=== PATIENT | female | born 1975 | race Caucasian/White ===

== ENCOUNTER 2019-05-17 06:20 | Outpatient (RCR) | payer OTHER, SELFPAY | END 2019-05-30 00:01 | LOC: ONCRAD 06:20 | PROVIDERS: Family Provider Family Medicine; Visit Provider Radiology Radiation Oncology | DX: Z53.9 Procedure and treatment not carried out, unspecified reason (principal) ==

== ENCOUNTER 2019-06-16 06:29 | Outpatient (RCR) | payer OTHER, SELFPAY ==
--- NOTE | 2019-06-16 13:05 | ONC FU_ITS ---
Dr. Wen follow up note Patient: Sara Barry Unit #: [id number]: [id number] Dicatated By: Tasneem Wen M.D.Date of Visit:Jun 16, 2019 Onc Med Follow-up/Prog Note History of Present Illness: Mrs. Sara Barry, is a 44-year-old female with history of abnormal screening mammogram done on 12/09/2018, underwent lumpectomy on 01/20/2019 for BI-RADS 4 lesion in the right breast at 12:00 position and final pathology report showed DCIS 2 mm in size, Comedo pattern, necrosis present, margins were clear except DCIS 1 mm from inked posterior margin pTis, ER 42% week to moderate positive, VA 92% strong positive HER-2/lyndsey negative Patient tolerated procedure well now due to close margin, scheduled for reexcision on 02/17/2019.Status post postlumpectomy radiation therapy completed on 04/19/2019 Patient was offered tamoxifen as adjuvant therapy but patient declined against medical advise she was referred to breast cancer clinic at [place] for clinical trial and second opinion she was seen by Dr. Ledbetter on 05/11/2019 and recommendations were consider tamoxifen as patient is premenopausal unless patient undergo bilateral oophorectomy and then aromatase inhibitor can be considered. Also recommended cytogenetic testing. But patient has decided not to consider tamoxifen because of related side effects and toxicity and her personal reasons. Family history positive for breast cancer in her great grandmother. Patient had 3 pregnancies, 3 live births, did not breast-feed. Used oral contraceptive for short period time Came for follow-up, denies any specific complaints, no fever or chills, no nausea or vomiting, no diarrhea constipation, no abdominal pain,. Patient has seen Dr. Ledbetter at [facility] and was pleased with second opinion and evaluation but still adamant not to consider tamoxifen or any hormonal therapy. Medications: Levo-T 1 Tablet (of 100 mcg) Oral daily Allergies: No Known Allergies. Review of Systems: Constitutional - Appetite is good and weight is stable. No fever, chills, hot flashes, or night sweats. Energy is good, ENMT - No sinus congestion/drainage. No mouth sores. No sore throat or difficulty swallowing, Hematologic/Lymphatic - No abnormal bruising or bleeding, Respiratory - No shortness of breath. No cough. No pleuritic pain or hemoptysis, Cardiovascular - No angina pain, Gastrointestinal - No nausea or vomiting. No heartburn or acid reflux. No diarrhea or constipation. No blood in the stool or black stools, Genitourinary (F) - No dysuria or hematuria. No urinary frequency. No urgency or incontinence, Musculoskeletal - Positive for back pain, Neurologic - No headache. Positive for occasional dizziness. No numbness/paresthesias or other focal neurologic symptoms, Psychiatric - Positive for depression and anxiety. Vital Signs: Performed on Jun 16, 2019 08:21 Height - 66.00 in Weight - 231.8 lbs (HIGH) BSA - 2.13 sq.m BMI - 37.41 (HIGH) Temperature - 98.0 F (LOW) Pulse - 82 /min Respiration - 18 /min BP - 129/84 mm(hg) O2 Sat - 98 % Pain - 0 Performance Status: 0 - Fully active, able to carry on all predisease activities without restrictions. (ECOG) Physical Examination: Respiratory - Lungs are clear to auscultation without rhonchi or wheezing, Cardiovascular - Regular rate and rhythm of heart, Extremities - no edema. Lab/Imaging: Most recent lab results are not available for this patient. Impression: Subcentimeter DCIS involving the right breast status post lumpectomy done on 01/20/2019, Final pathology report 2 mm DCIS, comedo pattern, necrosis present, clear margin but DCIS 1 mm from inked posterior margin, no lymph nodes submitted pTis,Nx,Mx ER 42%, VA 92%, HER-2/lyndsey negative Status post postlumpectomy radiation therapy completed on 04/19/2019 Patient was recommended for adjuvant hormonal therapy with tamoxifen for 5 years but patient declined, she was referred to breast cancer clinic at [facility] where she was seen by Dr. Ledbetter on 05/11/2019 and again they concurred with our recommendations patient was offered tamoxifen but patient declined against medical advise, knowing the risk versus benefits Plan: Discussed with patient regarding her disease status and role of adjuvant hormone therapy but patient would not consider adjuvant hormonal therapy despite of having lengthy discussion with at breast cancer clinic in [facility]. Patient has decided not to take tamoxifen AGAINST MEDICAL ADVICE rather prefer observation alone. She has completed postlumpectomy radiation therapy although. In that case we will see her on as-needed basis as patient will follow with her NET [employer]ER and primary care physician with follow-up mammogram. Unless she changes her mind regarding adjuvant therapy. Signed By: Tasneem Wen M.D. <<Signature on File>>
== END 2019-06-30 23:59 | disposition home or self-care (01) ==
LOC: ONCMED 06:29
PROVIDERS: Family Provider Family Medicine; PCP Family Medicine; Visit Provider Internal Medicine Hematology & Oncology
DX: D05.11 Intraductal carcinoma in situ of right breast (principal); Z17.0 Estrogen receptor positive status [ER+]; Z92.3 Personal history of irradiation; Z80.3 Family history of malignant neoplasm of breast; Z98.890 Other specified postprocedural states; Z53.29 Procedure and treatment not carried out because of patient's decision for other reasons
CPT/HCPCS: G0463

== ENCOUNTER → 2020-01-02 11:41 | Outpatient (BNVA) | payer SELFPAY | PROVIDERS: Family Provider Family Medicine; PCP Family Medicine; Visit Provider Family Medicine | DX: E03.9 Hypothyroidism, unspecified (principal); I10 Essential (primary) hypertension | CPT/HCPCS: 84439; 84443 ==

== ENCOUNTER 2020-03-29 08:27 | Outpatient (CLI) | payer SELFPAY ==
--- NOTE | 2020-03-29 08:30 | MM_ITS ---
WS: [id number] Exam: [id number] Date/Time of Exam: 03/29/2020 8:59 AM Reason For Exam: h/o breast cancer VIEWS: MLO, CC, and ML views both breasts. Comparison made with prior exam of 09/25/2016. Findings: There was no sign of mass, architectural distortion or suspicious calcification in either breast. Sc attered fibroglandular densities MM/[place] [id number] Impression: BI-RADS: 2-Benign FOLLOW-UP: 1 Year Follow-up This mammogram was also analyzed by the Computer Aided Detection System R2 Imag e [employer].
== END 2020-03-29 08:28 | disposition home or self-care (01) ==
LOC: RADSHAW 08:30
PROVIDERS: PCP Family Medicine; Visit Provider Surgery
DX: Z85.3 Personal history of malignant neoplasm of breast (principal)
CPT/HCPCS: 77066

== ENCOUNTER → 2020-12-12 10:52 | Outpatient (BNVA) | payer OTHER, SELFPAY | PROVIDERS: PCP Family Medicine; Visit Provider Family Medicine | DX: E03.9 Hypothyroidism, unspecified (principal); F41.9 Anxiety disorder, unspecified; D05.11 Intraductal carcinoma in situ of right breast | CPT/HCPCS: 84443 ==

== ENCOUNTER → 2021-05-26 13:26 | Outpatient (BNVA) | payer OTHER, SELFPAY | PROVIDERS: PCP Family Medicine; Visit Provider Obstetrics & Gynecology | DX: Z12.4 Encounter for screening for malignant neoplasm of cervix (principal) | CPT/HCPCS: 86592; 86803; 87340; 87491; 87591; 87624; 87806 ==

== ENCOUNTER 2021-10-02 14:31 | Outpatient (CLI) | payer OTHER, SELFPAY ==
--- NOTE | 2021-10-02 14:37 | MM_ITS ---
WS: [id number] BILATERAL 3D TOMOSYNTHESIS DIGITAL DIAGNOSTIC MAMMOGRAPHY WITH CAD CLINICAL INFORMATION: HX OF BREAST CA COMPARISON: March 29, 2020 TECHNIQUE: Bilateral CC, MLO, and ML views. FINDINGS: Scattered fibroglandular densities bilaterally. Postoperative lumpectomy RIGHT breast with surgical c lips and parenchymal fibrosis. No suspicious focal mass, asymmetry, calcifications, or architectural distortion. No evidence of camryn gnancy. [id number] IMPRESSION: BI-RADS: 2-Benign FOLLOW UP: 1 Year Follow-up Recommend return to annual diagnostic mammography.
== END 2021-10-02 14:32 | disposition home or self-care (01) ==
LOC: RAD 14:34
PROVIDERS: PCP Family Medicine; Visit Provider Obstetrics & Gynecology
DX: Z85.3 Personal history of malignant neoplasm of breast (principal)
CPT/HCPCS: 77062